=== PATIENT | female | born 1990 | race Caucasian/White ===

== ENCOUNTER 2017-01-10 23:06 | Emergency (ER) | payer BC ==
[2017-01-10 23:37] LABS: Bilirubin Negative (Negative); Blood, Urine Large (Negative); Glucose, Urine (Dipstick) Negative (Negative); Ketone, Urine Negative (Negative); Nitrite Negative (Negative); Protein, Urine (Dipstick) 30 mg/dL (Neg-Trace); Urobilinogen 0.2 mg/dL (0.2-1.0)
[2017-01-10 23:43] LABS: RBC/HPF GREATER THAN 50-TNTC HPF (0-3); WBC/HPF None Seen HPF (0-3)
[2017-01-10 23:44] LABS: Bacteria/HPF Rare-Few HPF (None Seen); Squamous Epithelial None Seen HPF (0-3)
[2017-01-10 23:50] LABS: #Basophils 0.1 thou/uL (0.0-0.2); #Eosinphils 0.2 thou/uL (0.0-0.7); #Lymphocytes 1.6 thou/uL (1.20-3.40); #Monocytes 0.5 thou/uL (0.11-0.59); #Neutrophils 4.4 thou/uL (1.40-6.50); %Eosinophils 2.4 % (0.0-10.0); %Lymphocytes 24.2 % (21.0-51.0); %Monocytes 7.4 % (0.0-10.0); Hematocrit 37.7 % (36.0-47.0); Mean Platelet Volume 8.4 fL (7.4-10.4); Red Blood Cell (RBC) Count 4.42 mill/uL (4.20-5.40); White Blood Cell (WBC) Count 6.8 thou/uL (4.8-10.8)
[2017-01-11] MEDS ORDERED: Ondansetron HCl/PF 4 MG/2 ML Vial ONE (00:11)
[2017-01-11] MEDS ORDERED: HYDROcodone/Acetaminophen 5/325 mg Tablet ONE (00:34)
[2017-01-11] MEDS ORDERED: Guaifenesin DM 100-10/5 ML UDCUP ONE (00:34)
== END 2017-01-11 01:16 | disposition short-term general hospital (02) ==
LOC: NAV ERS 23:06
DX: O03.4 Incomplete spontaneous abortion without complication (principal)
CPT/HCPCS: 81003; 81015; 84702; 85025; 86900; 86901; 96361; 96374; 96375; J2270; J2405

== ENCOUNTER 2017-01-12 09:21 | Outpatient (CLI) | payer BC | END 2017-01-12 09:22 | disposition home or self-care (01) | LOC: NAV LAB 09:21 | PROVIDERS: ATTEND Nurse Practitioner Family | DX: O03.9 Complete or unspecified spontaneous abortion without complication (principal); N91.2 Amenorrhea, unspecified | CPT/HCPCS: 36415; 81025; 84702; 85018; 86850; 86900; 86901 ==

== ENCOUNTER 2017-01-13 09:39 | Outpatient (CLI) | payer BC | END 2017-01-13 09:40 | disposition home or self-care (01) | LOC: NAV LAB 09:39 | PROVIDERS: ATTEND Nurse Practitioner Family | DX: O03.9 Complete or unspecified spontaneous abortion without complication (principal) | CPT/HCPCS: 36415; 84702 ==